=== PATIENT | male | born 1985 | race Caucasian/White ===

== ENCOUNTER 2019-01-03 06:31 | Day surgery (SDC) | payer OTHER ==
[2019-01-03] MEDS ORDERED: CEFAZOLIN/SWI 1gm 1 GM/10 ML SYR ONE (07:13)
[2019-01-03] MEDS ORDERED: Ringers Lactate 1,000 ML IV ONE (07:13)
[2019-01-03] MEDS ORDERED: BUPIVACA 0.25%/EPI 0.0005% MDV 50 ML VIAL ONE (07:31)
[2019-01-03] MEDS ORDERED: PROPOFOL 200 MG/20 ML VIAL IV ONE (08:02)
[2019-01-03] MEDS ORDERED: LIDOCAINE 2% MPF 5 ML VIAL ONE (08:03)
[2019-01-03] MEDS ORDERED: MIDAZOLAM HCL 2 MG/2 ML INJ ONE (08:03)
[2019-01-03] MEDS ORDERED: ONDANSETRON 4 MG/2 ML VIAL ONE (08:03)
[2019-01-03] MEDS ORDERED: FENTANYL CITR 100 MCG/2 ML ONE (08:03)
--- NOTE | 2019-01-03 08:38 | P.OP ---
Preoperative diagnosis: RIGHT neck Cyst Postoperative diagnosis: RIGHT neck sebaceous Cyst Primary procedure: Excision of RIGHT neck sebaceous cyst ~3.5 cm Anesthesia: GETA+ Local Estimated blood loss: <2cc Specimen: Sebaceous Cyst with capsule Findings: 3.5cm sebaceous cyst of right neck, superior to platysma Complications: None Transferred to: Recovery Room Condition: Good
--- NOTE | 2019-01-03 17:03 | OP ---
Date of Procedure: 01/03/2019 Surgeon: Donald Vaelntine MD, Preoperative Diagnosis: Right neck cyst. Postoperative Diagnosis: Right neck sebaceous cyst. Primary Procedure: Excision of right neck sebaceous cyst of approximately 3.5 cm in size. Anesthesia: General endotracheal plus local with 0.25% Marcaine with epinephrine. Estimated Blood Loss: Less than 2 cc. Specimen: Sebaceous cyst capsule. Findings: A 3.5 cm sebaceous cyst of the right neck superior to the platysma. Complications: None. Disposition: Transferred to recovery room in good condition. Procedure In Detail: After informed consent was obtained, the patient was brought to the operating r oom, prepped and draped in the usual sterile fashion after adequate anesthesia was achieved in the [facility] neck area. A 3.5 cm cyst was appreciated. This area was anesthetized along Uyen lines on the right neck area. An incision was made down through subcutaneous tissues to expose a sebaceous cyst w ith sebum emanating from the capsule on the superior aspect. This was circumferentially dissected an d removed in its entirety. The remaining capsule was also removed in its entirety, all superior to t he platysma. This was sent off for pathologic examination. The area was copiously irrigated. Hemos tasis was easily achieved without any additional hemostatic maneuvers during the course of the dissec tion with electrocautery. The area was copiously irrigated and dried multiple times until completely clear. There was no evidence of continued bleeding or any hemostatic maneuver required. As such, t he skin was then closed using a 4-0 Monocryl in running fashion. Dermabond placed over the top. The patient tolerated the procedure without evidence of complication and transferred to the PACU in good condition. All counts were correct at the end of the case. TK/MODL Voice ID: [id number] Report ID: [id number]
== END 2019-01-03 10:03 | disposition home or self-care (01) ==
LOC: OR 06:31
PROVIDERS: ATTEND Surgery
PROC: 0JB Subcutaneous Tissue and Fascia, Excision (ICD-10-PCS; principal; 2019-01-03 08:00)
DX: L72.0 Epidermal cyst (principal); F17.210 Nicotine dependence, cigarettes, uncomplicated
CPT/HCPCS: 88304; 88305; J0690; J2250; J2405; J2704; J3010

== ENCOUNTER 2019-10-01 19:17 | Emergency (ER) | payer OTHER ==
--- OUTSIDE RECORDS SUMMARY | 2019-10-01 19:19 | XMS REPORT ---
:1985 Author Organization [facility] Address [address] [place] [address] Care Team Providers Name Role Phone Unavailable Unavailable Unavailable Payers Payer Name Policy Type Policy Number Effective Date Expiration Date Problems This patient has no known problems. Allergies, Adverse Reactions, Alerts Allergy Allergy Status Severity Reaction(s) Onset Inactive Treating Comments Name Type Date Date Clinician No Known DA Active U 2019-07 Allergies -15 00:00:0 0 Medications This patient has no known medications. Results Test Description Test Time Test Comments Text Results Atomic Results Result Comments SURG 2019-08-07 RUN DATE: 16:06:00 08/07/19 [facility] [employer] [facility] PAGE 1 RUN TIME: 1606 Specimen Inquiry RUN USER: INTERFACE PATIENT: JARROD CORDERO LOC: JACKELINE U #: [id number] AGE/SX: 33/M ROOM: RE07/31/19[facility] DR: Goyo Khan III : 83 BED: DIS: STATUS: [facility] TLOC: SPEC #: [id number] RECD: 07/31/19 STATUS: JAYLIN [facility] # : [id number] CAT: 07/31/[address] [place] [address]: Goyo Khan III, MD ENTERED: 07/31/19 SP TYPE: SURG OTHR DR: Brandon Verdugo MD ORDERED: FS , SURG PATH LVL 4 COPIES TO: [place] [id number] [facility] [id number] [place] [id number] Brandon Verdugo MD [address] [place] [address] HISTOLOGY: TISSUE ID BLK PCS RENO LEV PROCEDURE DISPOSITION ____ ___ ___ ___ TONSIL, NOS A 1 1 PROCEDURES: FS (07/31/19) SURG PATH LVL 4 (08/01/19) TISSUES: A. TONSIL, NOS - RIGHT TONSIL PAPILLOMA CLINICAL HISTORY BENIGN NEOPLASM-D36.9 CPT CODES CPT CODE(S): 33198 , 88127 , 95985 , , , , FINAL DIAGNOSIS Tonsil, right, excision: BENIGN SQUAMOUS PAPILLOMA FROZEN SECTION DIAGNOSIS (FSA1) Right tonsil papilloma: MARGIN NEGATIVE. /SS CONTINUED ON NEXT PAGE RUN DATE: 08/07/19 [facility] PAGE 2 RUN TIME: 1606 Specimen Inquiry RUN USER: INTERFACE SPEC #: [facility]:[id number] PATIENT: JARROD CORDERO #[id number] (Continued) GROSS DESCRIPTION Right tonsil papilloma. Received fresh is a fragment of santana-brown soft tissue, 1.0 x 1.0 x 0.4 cm. The resection margin is inked black. The specimen is sectioned and the cut surface is santana-brown and solid. Post Doctoral Fellow section is frozen as FSA1 and submitted for permanent section as A1. The remainder of the specimen is submitted for routine histology following fixation labeled A2. ba/nr Grossing performed at [facility], [address] [place] [address], [address], [place], [place] [address]. Charm Filter Operator Helper: Paramjit Carson M.D. MICROSCOPIC DESCRIPTION Right tonsil papilloma. Sections demonstrate squamous mucosa with areas of hyperplasia and a papillary appearance. No evidence of dysplasia or malignancy is identified. Immunohistochemistry for p63 demonstrates focal positivity involving a portion of papilloma. Signed SIGNATURE ON FILE Jorge Medellin 1606 END OF REPORT
[2019-10-01] MEDS ORDERED: KETOROLAC 30 MG/ML INJ ONE (19:40)
--- NOTE | 2019-10-01 19:50 | EDPHYS ---
Physician Documentation [facility] Name: Flavio Dennis Age: 34 yrs Sex: Male : 1985 Arrival Date: 10/01/2019 Time: 19:20 Bed 26 Private MD: ED Physician Bebeto Escoto HPI: 10/02 06:25 This 34 yrs old Male presents to ER via Ambulatory with complaints of tw4 Shoulder Pain. 06:25 The patient or guardian complains of decreased range of motion, pain. right shoulder. tw4 Context: The problem was sustained at home, resulted from an unknown reason, The patient experiences decreased range of motion. Onset: The symptoms/episode began/occurred 3 week(s) ago. Modifying factors: the symptoms are alleviated by remaining still, The symptoms are aggravated by lifting weight, movement. Associated signs and symptoms: The patient has no apparent associated signs or symptoms. The patient has not experienced similar symptoms in the past. Historical: - Allergies: 10/01 19:52 No Known Allergies; mg2 - Home Meds: 19:52 None [Active]; mg2 - PMHx: 19:52 None; mg2 - PSHx: 19:52 cyst removal from the neck; mg2 - Immunization history:: Flu vaccine status is unknown. - Social history:: Smoking status: unknown. - Ebola Screening: : No symptoms or risks identified at this time. ROS: 10/02 06:25 Constitutional: Negative for fever, chills, and weight loss, Eyes: Negative for injury, tw4 pain, redness, and discharge. Cardiovascular: Negative for chest pain, palpitations, and edema, Respiratory: Negative for shortness of breath, cough, wheezing, and pleuritic chest pain, Abdomen/GI: Negative for abdominal pain, nausea, vomiting, diarrhea, and constipation, Back: Negative for injury and pain, MS/Extremity: Negative for injury and deformity, Skin: Negative for injury, rash, and discoloration. MS/extremity: Positive for decreased range of motion, pain, swelling, tenderness. Exam: 06:25 Constitutional: This is a well developed, well nourished patient who is awake, alert, tw4 and in no acute distress. Head/Face: Normocephalic, atraumatic. Chest/axilla: Normal chest wall appearance and motion. Nontender with no deformity. No lesions are appreciated. Cardiovascular: Regular rate and rhythm with a normal S1 and S2. No gallops, murmurs, or rubs. Normal PMI, no JVD. No pulse deficits. Respiratory: Lungs have equal breath sounds bilaterally, clear to auscultation and percussion. No rales, rhonchi or wheezes noted. No increased work of breathing, no retractions or nasal flaring. Abdomen/GI: Soft, non-tender, with normal bowel sounds. No distension or tympany. No guarding or rebound. No evidence of tenderness throughout. Back: No spinal tenderness. No costovertebral tenderness. Full range of motion. 06:25 Neuro: Awake and alert, GCS 15, oriented to person, place, time, and situation. Cranial nerves II-XII grossly intact. Motor strength 5/5 in all extremities. Sensory grossly intact. Cerebellar exam normal. Normal gait. Psych: Awake, alert, with orientation to person, place and time. Behavior, mood, and affect are within normal limits. 06:25 Musculoskeletal/extremity: Extremities: noted in the anterior aspect of right shoulder: decreased ROM, pain, tenderness. Vital Signs: 10/01 19:53 BP 149 / 99; Pulse 71; Resp 18; Pulse Ox 95% on R/A; Weight 122.47 kg; Height 6 ft. 1 mg2 in. (185.42 cm); 19:55 Temp 98.0(O); Pulse Ox 97% ; lt1 19:53 Body Mass Index 35.62 (122.47 kg, 185.42 cm) mg2 MDM: 19:22 Patient medically screened. tw4 10/02 06:25 Differential diagnosis: tendonitis. Data reviewed: vital signs, nurses notes. Data tw4 interpreted: Pulse oximetry: Interpretation: normal. Counseling: I had a detailed discussion with the patient and/or guardian regarding: the historical points, exam findings, and any diagnostic results supporting the discharge/admit diagnosis. Special discussion: I discussed with the patient/guardian in detail that at this point there is no indication for admission to the hospital. It is understood, however, that if the symptoms persist or worsen the patient needs to return immediately for re-evaluation. 10/01 19:34 Order name: Dulce; Complete Time: 19:48 tw4 Administered Medications: 10/01 19:48 Drug: TORadol 60 mg Route: IM; Site: right gluteus; mg2 20:10 Follow up: Response: No adverse reaction; Medication administered at discharge. mg2 Disposition: 10/01/19 19:50 Discharged to Home. Impression: Other sprain of right shoulder joint. - Condition is Stable. - Discharge Instructions: Shoulder Pain, Shoulder Range of Motion Exercises, Shoulder Pain, [id number], Shoulder Sprain. - Prescriptions for Ibuprofen 800 mg Oral Tablet - take 1 tablet by ORAL route every 8 hours As needed take with food; 30 tablet. Tramadol 50 mg Oral Tablet - take 1 tablet by ORAL route every 8 hours as needed; 12 tablet. - Medication Reconciliation Form, Thank You Letter, Antibiotic Education, Prescription Opioid Use form. - Follow up: Khoi Hernandez MD; When: Upon discharge from the Emergency Department; Reason: Recheck today's complaints, Continuance of care. Follow up: Charles Cervantes MD; When: Upon discharge from the Emergency Department; Reason: Recheck today's complaints, Continuance of care. Signatures: Bebeto Escoto MD MD tw4 Jarod Frey RN RN mg2 Corrections: (The following items were deleted from the chart) 20:14 19:50 10/01/2019 19:50 Discharged to Home. Impression: Other sprain of right shoulder mg2 joint. Condition is Stable. Discharge Instructions: Shoulder Pain, Shoulder Range of Motion Exercises, Shoulder Pain, [id number], Shoulder Sprain. Forms are Medication Reconciliation Form, Thank You Letter, Antibiotic Education, Prescription Opioid Use. Follow up: Khoi Hernandez; When: Upon discharge from the Emergency Department; Reason: Recheck today's complaints, Continuance of care. Follow up: Dr. Charles Cervantes; When: Upon discharge from the Emergency Department; Reason: Recheck today's complaints, Continuance of care. tw4
--- NOTE | 2019-10-01 19:50 | ER ---
Nurse's Notes [facility] Name: Flavio Dennis Age: 34 yrs Sex: Male : 1985 Arrival Date: 10/01/2019 Time: 19:20 Bed 26 Private MD: Diagnosis: Other sprain of right shoulder joint Presentation: 10/01 19:20 Presenting complaint: Patient states: i am having right shoulder pain for 3 weeks now. mg2 19:20 Transition of care: patient was not received from another setting of care. Onset of mg2 symptoms was September 2019. Risk Assessment: Do you want to hurt yourself or someone else? Patient reports no desire to harm self or others. Initial Sepsis Screen: Does the patient meet any 2 criteria? Does the patient have a suspected source of infection? No. Patient's initial sepsis screen is negative. Care prior to arrival: None. 19:20 Method Of Arrival: Ambulatory mg2 19:20 Acuity: LUMA 4 mg2 Historical: - Allergies: 19:52 No Known Allergies; mg2 - Home Meds: 19:52 None [Active]; mg2 - PMHx: 19:52 None; mg2 - PSHx: 19:52 cyst removal from the neck; mg2 - Immunization history:: Flu vaccine status is unknown. - Social history:: Smoking status: unknown. - Ebola Screening: : No symptoms or risks identified at this time. Screenin:52 Abuse screen: Denies threats or abuse. Denies injuries from another. Nutritional mg2 screening: No deficits noted. Tuberculosis screening: No symptoms or risk factors identified. Fall Risk None identified. Assessment: 19:53 General: Appears in no apparent distress. comfortable, Behavior is calm, cooperative. mg2 Pain: Complains of pain in right shoulder. Neuro: Level of Consciousness is awake, alert, obeys commands, Oriented to person, place, time, situation. Cardiovascular: Capillary refill < 3 seconds Patient's skin is warm and dry. Respiratory: Airway is patent Respiratory effort is even, unlabored, Respiratory pattern is regular, symmetrical. GI: No signs and/or symptoms were reported involving the gastrointestinal system. : No signs and/or symptoms were reported regarding the genitourinary system. EENT: No signs and/or symptoms were reported regarding the EENT system. Derm: Skin is intact, is healthy with good turgor, Skin is pink, warm \T\ dry. normal. Musculoskeletal: Circulation, motion, and sensation intact. Capillary refill < 3 seconds, Reports pain in right shoulder. Vital Signs: 19:53 BP 149 / 99; Pulse 71; Resp 18; Pulse Ox 95% on R/A; Weight 122.47 kg; Height 6 ft. 1 mg2 in. (185.42 cm); 19:55 Temp 98.0(O); Pulse Ox 97% ; lt1 19:53 Body Mass Index 35.62 (122.47 kg, 185.42 cm) mg2 ED Course: 19:20 Patient arrived in ED. jg7 19:22 Bebeto Escoto MD is Attending Physician. tw4 19:39 Jarod Frey, RN is Primary Nurse. mg2 19:49 Khoi Hernandez MD is Referral Physician. tw4 19:49 Charles Cervantes MD is Referral Physician. tw4 19:49 Arm band placed on. mg2 19:50 Triage completed. mg2 19:52 No provider procedures requiring assistance completed. Patient did not have IV access mg2 during this emergency room visit. Sling applied to right arm. 19:55 Patient has correct armband on for positive identification. mg2 Administered Medications: 19:48 Drug: TORadol 60 mg Route: IM; Site: right gluteus; mg2 20:10 Follow up: Response: No adverse reaction; Medication administered at discharge. mg2 Outcome: 19:50 Discharge ordered by . tw4 20:13 Discharged to home ambulatory, with family. mg2 20:13 Condition: stable 20:13 Discharge instructions given to patient, family, Instructed on discharge instructions, mg2 follow up and referral plans. medication usage, Demonstrated understanding of instructions, follow-up care, medications. 20:14 Patient left the ED. mg2 Signatures: Bebeto Escoto MD MD tw4 Jarod Frey, ARNOLDO RN mg2 Aisha Mejia lt1 Medina Gibson jg7
[2019-10-01 20:21] VITALS: BP 149/99
[2019-10-01 20:22] VITALS: TEMP 98; O2SAT 97
== END 2019-10-01 20:14 | disposition home or self-care (01) ==
LOC: ER 19:17
DX: S43.491A Other sprain of right shoulder joint, initial encounter (principal); X58.XXXA Exposure to other specified factors, initial encounter; Y93.9 Activity, unspecified; Y92.009 Unspecified place in unspecified non-institutional (private) residence as the place of occurrence of the external cause
CPT/HCPCS: 96372; 99283